=== PATIENT | female | born 1955 | race Caucasian/White ===

== ENCOUNTER 2017-11-16 14:46 | Emergency (ER) | payer BC ==
[2017-11-16] MEDS ORDERED: predniSONE 20 MG TAB ONE (15:28)
[2017-11-16 15:29] LABS: #Basophils 0.1 thou/uL (0.0-0.2); #Eosinphils 0.4 thou/uL (0.0-0.7); #Lymphocytes 1.3 thou/uL (1.20-3.40); #Monocytes 0.5 thou/uL (0.11-0.59); #Neutrophils 4.5 thou/uL (1.40-6.50); %Eosinophils 6.3 % (0.0-10.0); %Lymphocytes 18.9 % (21.0-51.0); %Monocytes 7.2 % (0.0-10.0); %Neutrophils 66.6 % (42.0-75.0); Mean Corpuscular HGB CONC 31.7 g/dL (32.0-36.0); Mean Corpuscular Volume 94.9 fl (81.0-99.0); Mean Platelet Volume 7.2 fL (7.4-10.4); Platelet Count 264 thou/uL (130-400); RBC Distribution Width 12.5 % (11.5-14.5); Red Blood Cell (RBC) Count 4.98 mill/uL (4.20-5.40); White Blood Cell (WBC) Count 6.7 thou/uL (4.8-10.8)
[2017-11-16] MEDS ORDERED: Dexamethasone 10 MG/ML VIAL ONE (15:34)
--- NOTE | 2017-11-16 15:38 | RAD ---
PORTABLE CHEST 1 VIEW: Date: 11/16/17 Time: 1511 hours HISTORY: Dyspnea. FINDINGS: Heart size is normal. Aorta is tortuous. Lungs are expanded with patchy infiltrate in the right upper lobe. No pneumothoraces or pleural effusions are seen. IMPRESSION: Findings are suspicious for right-sided pneumonia. POS: [facility]
[2017-11-16] MEDS ORDERED: Albuterol Sulfate 2.5 mg/3 ml Neb ONE (15:42)
[2017-11-16] MEDS ORDERED: Albuterol Sulfate 2.5 mg/0.5 ml Neb ONE (15:42)
[2017-11-16 15:52] LABS: ALT (SGPT) 33 U/L (8-55); AST (SGOT) 29 U/L (5-34); Albumin 4.7 g/dL (3.5-5.0); Alkaline Phosphatase 92 U/L (40-150); Anion Gap 15 mmol/L (10-20); BUN (Urea Nitrogen) 14 mg/dL (9.8-20.1); Bilirubin, Total 0.3 mg/dL (0.2-1.2); CK (CPK) 56 U/L (29-168); Calc. Creatinine Clearance 0 mL/min (70-130); Calcium 9.3 mg/dL (7.8-10.44); Carbon Dioxide 24 mmol/L (22-29); Chloride 104 mmol/L (98-107); Estimated GFR-MDRD 70; Globulin 3.3 g/dL (2.4-3.5); Glucose 90 mg/dL (70-105); Potassium 3.8 mmol/L (3.5-5.1); Sodium 139 mmol/L (136-145)
[2017-11-16 15:57] LABS: CKMB 1.5 ng/mL (0-6.6); Troponin I 0.011 ng/mL (< 0.028)
--- NOTE | 2017-11-21 14:30 | EKG ---
Test Reason : Blood Pressure : / mmHG Vent. Rate : 078 BPM Atrial Rate : 078 BPM P-R Int : 156 ms QRS Dur : 072 ms QT Int : 368 ms P-R-T Axes : -03 016 -13 degrees QTc Int : 419 ms Normal sinus rhythm Septal infarct , age undetermined Abnormal ECG Confirmed by SERENA CALDERON, OLIVIA ([id number]), food expeditor BRAIN ISAAC ([id number]) on 11/21/2017 2:30:10 PM Referred By: Confirmed By:OLIVIA LYONS MD
== END 2017-11-16 17:58 | disposition home or self-care (01) ==
LOC: ERS 14:46
DX: J18.9 Pneumonia, unspecified organism (principal); J98.01 Acute bronchospasm; E03.9 Hypothyroidism, unspecified; K21.9 Gastro-esophageal reflux disease without esophagitis; I10 Essential (primary) hypertension; F41.9 Anxiety disorder, unspecified; F17.210 Nicotine dependence, cigarettes, uncomplicated; Z71.6 Tobacco abuse counseling
CPT/HCPCS: 36415; 71045; 80053; 82550; 82553; 84484; 85025; 93005; 94640; 94760; 96372; 99406; J1100; J7506; J7611

== ENCOUNTER 2017-11-25 15:18 | Outpatient (CLI) | payer BC ==
--- NOTE | 2017-11-25 16:58 | RAD ---
TWO VIEW CHEST: 11/25/17 HISTORY: Pneumonia. Comparison made to a one view chest of 11/16/17. The prior exam revealed hazy infiltrate in the right upper lobe abutting the fissure on the right. On today's exam, there has been improvement in this hazy infiltrate. There continues to be some density peripherally that abuts the pleural surface in the lateral right chest at the site of this infiltrat e. Recommend continued followup to ensure clearing. IMPRESSION: Improvement in the infiltrate. Some persistent density peripheral right lung abutting the pleural bijan face. This could potentially represent loculated fluid or residual peripheral infiltrate. Followup re commended. POS: [facility]
== END 2017-11-25 15:19 | disposition home or self-care (01) ==
LOC: SCSRAD 15:18
PROVIDERS: ATTEND Nurse Practitioner Family
DX: J18.9 Pneumonia, unspecified organism (principal)
CPT/HCPCS: 71046

== ENCOUNTER 2017-12-01 16:13 | Outpatient (CLI) | payer BC | END 2017-12-01 16:14 | disposition home or self-care (01) | LOC: BICRAD 16:13 | PROVIDERS: ATTEND Nurse Practitioner Family | DX: J18.9 Pneumonia, unspecified organism (principal) | CPT/HCPCS: 71046 ==

== ENCOUNTER 2017-12-28 14:56 | Outpatient (CLI) | payer BC ==
--- NOTE | 2017-12-28 16:40 | MRI ---
MRI RIGHT KNEE WITHOUT CONTRAST: INDICATIONS: Right knee pain and swelling for one to two weeks. COMPARISON: None. FINDINGS: There is a 2 mm articular cartilage fissure involving the medial patellar ridge. There is some mild to moderate chondrosis involving the lateral patellar facet. There is moderate sized semimembranosus -medial gastrocnemius popliteal cyst. There is diffuse mild chondrosis involving the medial femoral tibial joint compartment. There is some mild edema involving the medial tibial plateau. There is a horizontally oriented oblique flap tear involving the body of the medial meniscus with a d isplaced meniscal flap seen within the inferior medial gutter, measuring 0.5 x 1.2 cm. The lateral m eniscus is intact. The ACL, PCL, MCL, and LCLC are intact. The extensor mechanism is intact. IMPRESSION: 1. Mild diffuse chondrosis involving the right knee but most prominently affecting the lateral mcclure lofemoral and the medial femoral tibial joint compartment. 2. Horizontally oriented oblique tear involving the body of the medial meniscus with displaced menis sheila flap seen within the inferior aspect of the medial gutter. POS: [facility]
== END 2017-12-28 14:57 | disposition home or self-care (01) ==
LOC: MRI 14:56
PROVIDERS: ATTEND Orthopaedic Surgery
DX: M25.561 Pain in right knee (principal); S83.241A Other tear of medial meniscus, current injury, right knee, initial encounter

== ENCOUNTER 2017-12-30 07:46 | Day surgery (SDC) | payer BC ==
[2017-12-29 13:23] VITALS: BMI 30.6
[2017-12-30 08:59] LABS: #Eosinphils 0.3 thou/uL (0.0-0.7); #Lymphocytes 1.6 thou/uL (1.20-3.40); #Monocytes 0.4 thou/uL (0.11-0.59); %Basophils 0.7 % (0.0-1.0); %Eosinophils 6.1 % (0.0-10.0); %Lymphocytes 29.4 % (21.0-51.0); %Monocytes 8.1 % (0.0-10.0); %Neutrophils 55.7 % (42.0-75.0); Mean Corpuscular HGB CONC 32.3 g/dL (32.0-36.0); Mean Corpuscular Hemoglobin 30.7 pg (27.0-31.0); Mean Corpuscular Volume 95.1 fl (81.0-99.0); Mean Platelet Volume 7.3 fL (7.4-10.4); Platelet Count 243 thou/uL (130-400); RBC Distribution Width 13.4 % (11.5-14.5); Red Blood Cell (RBC) Count 4.24 mill/uL (4.20-5.40); White Blood Cell (WBC) Count 5.4 thou/uL (4.8-10.8)
[2017-12-30 09:10] LABS: Anion Gap 10 mmol/L (10-20); BUN (Urea Nitrogen) 20 mg/dL (9.8-20.1); Calc. Creatinine Clearance 80 mL/min (70-130); Calcium 9.1 mg/dL (7.8-10.44); Carbon Dioxide 28 mmol/L (22-29); Chloride 107 mmol/L (98-107); Estimated GFR-MDRD 61; Glucose 101 mg/dL (70-105); Potassium 4.3 mmol/L (3.5-5.1); Sodium 141 mmol/L (136-145)
[2017-12-30] MEDS ORDERED: PROPOFOL 20 ML ONE (09:19)
[2017-12-30] MEDS ORDERED: CEFAZOLIN/Water 2 GM/20 ML SYRINGE ONE (09:47)
[2017-12-30] MEDS ORDERED: Fentanyl 100 MCG/2 ML VIAL ONE ×2 (11:15→12:17)
--- NOTE | 2017-12-30 11:45 | OP ---
DATE OF PROCEDURE: 12/30/2017 PREOPERATIVE DIAGNOSIS: Right knee complex degenerative posterior horn and body medial meniscus tear . POSTOPERATIVE DIAGNOSES: Right knee complex degenerative posterior horn and body medial meniscus tea r. PROCEDURE PERFORMED: Knee arthroscopy, partial medial meniscectomy. SURGEON: Soto Reynolds M.D. DRUG ABUSE COUNSELOR: None. BLOOD LOSS: Minimal. COMPLICATIONS: None. ANESTHESIA: She did have general anesthetic as well as a local knee block. DISPOSITION: She did go to the recovery room in stable condition. INDICATIONS: This 62-year-old active female has been having problems with pain, catching, and swelli ng of the knee. She was found to have a large flap tear of her posterior horn of the medial meniscus and at this time opted to have surgery. DESCRIPTION OF PROCEDURE: After all appropriate consent forms were explained and signed, she was ar en to the operating room and at this time was given general anesthetic. Once anesthesia was appropri ate, the tourniquet was placed on the right thigh and leg was placed in an arthroscopic leg morrison. She was then prepped and draped in standard surgical fashion. The limb was then exsanguinated and to urniquet was taken up to 250 mmHg. An inferolateral portal was established and the scope was placed into the knee joint. Needle localization technique was then used to make a medial working portal. D iagnostic arthroscopy commenced in the notch. ACL and PCL probed and found to be intact. The medial compartment was evaluated. There were some grade 2 changes on the medial femoral condyle, some fiss uring on the tibial plateau, large complex tear posterior horn medial meniscus with 2 large flap comp onents. There was a flap that was still attached to the root, flipped posteriorly behind the knee an d another flap attached still to the body which was flipped underneath the meniscus. Using meniscal biter and shaver, we were able to trim this down and remove the flap tear leading all remaining viabl e meniscal tissue. At this time, we turned our attention to the lateral compartment which was found to be pristine. The patellofemoral joint showed the trochlea to be in excellent condition. The supe rior facet of patella did have some crabmeat appearance, it was gently debrided and no other loose deena dies were noted in the medial lateral gutter. At this time, scope was removed, knee was drained. Po rtals were closed with simple nylon stitch. Bulky sterile dressing was applied and the tourniquet le t down. Toes pinked up nicely. The patient was awakened and taken to the recovery room in stable co ndition. All counts were correct at the end of the case and she did receive preoperative IV antibiot ics.
[2017-12-30] MEDS ORDERED: HYDROcodone/Acetaminophen 5/325 mg Tablet ONE ×2 (13:15)
[2017-12-30] MEDS ORDERED: Lidocaine 2% w/Epinephrine 1:200K 20 ML VIAL ONE (14:46)
[2017-12-30] MEDS ORDERED: Bupivacaine HCl 0.5%/Epinephrine 1:200,000/PF 30 ml Vial ONE (14:46)
[2017-12-30] MEDS ORDERED: PROPOFOL 200 MG/20 ML VIAL ONE (16:01)
[2017-12-30] MEDS ORDERED: Ketorolac Tromethamine 30 MG/ML VIAL ONE (16:01)
[2017-12-30] MEDS ORDERED: Dexamethasone 20 MG/5 ML VIAL ONE (16:01)
--- NOTE | 2017-12-31 06:23 | EKG ---
Test Reason : PREOP Blood Pressure : / mmHG Vent. Rate : 047 BPM Atrial Rate : 047 BPM P-R Int : 172 ms QRS Dur : 088 ms QT Int : 472 ms P-R-T Axes : 027 020 047 degrees QTc Int : 417 ms Marked sinus bradycardia Abnormal ECG When compared with ECG of 16-NOV-2017 15:29, Vent. rate has decreased BY 31 BPM Non-specific change in ST segment in Inferior leads T wave inversion no longer evident in Inferior leads Confirmed by ALTAF PEGUERO ([id number]) on 12/31/2017 6:10:39 AM Referred By: TIM Confirmed By:ALTAF PEGUERO
== END 2017-12-30 14:25 | disposition home or self-care (01) ==
LOC: SDC 07:46
PROVIDERS: ATTEND Orthopaedic Surgery
PROC: 0SBC4ZZ Excision of Right Knee Joint, Percutaneous Endoscopic Approach (ICD-10-PCS; principal; 2017-12-30)
DX: S83.231A Complex tear of medial meniscus, current injury, right knee, initial encounter (principal); F32.9 Major depressive disorder, single episode, unspecified; F41.9 Anxiety disorder, unspecified; I10 Essential (primary) hypertension; E11.9 Type 2 diabetes mellitus without complications; K21.9 Gastro-esophageal reflux disease without esophagitis; E03.9 Hypothyroidism, unspecified; E78.5 Hyperlipidemia, unspecified; F17.210 Nicotine dependence, cigarettes, uncomplicated; Z79.899 Other long term (current) drug therapy; Z88.0 Allergy status to penicillin; Z88.8 Allergy status to other drugs, medicaments and biological substances
CPT/HCPCS: 36415; 80048; 85025; 93005; 93010; 96374; G8978-GP-CJ; G8979-GP-CJ; G8980-GP-CJ; J0670; J1100; J1885; J2704; J3010

== ENCOUNTER 2020-01-18 13:59 | Emergency (ER) | payer BC ==
--- NOTE | 2020-01-18 15:36 | CT ---
CT BRAIN WITHOUT CONTRAST: 01/18/20 HISTORY: Facial pain, head trauma, headache. FINDINGS: No evidence of acute infarct, hemorrhage, midline shift or abnormal extra-axial fluid collections are seen. There are changes of chronic small vessel ischemic disease in the periventricular white matte r. The bony calvarium is intact. There is mild mucosal disease in the paranasal sinuses. IMPRESSION: No CT evidence of acute intracranial process. POS: [facility]
--- NOTE | 2020-01-18 15:42 | CT ---
CT maxillofacial noncontrast: 01/18/2020 HISTORY: 64-year-old female with persistent posttraumatic facial pain after injury approximately 5 days ago. FINDINGS: No fracture is identified. No air-fluid levels in the paranasal sinuses. Mucosal thickening throughou t bilateral ethmoid air cells, and mild mucosal thickening throughout bilateral maxillary sinuses. Minimal mucosal thickening of sphenoid sinus. The bilateral tympanomastoid cavities and the orbits, a re clear. No moderate sized or large hematoma in the deep soft tissues. Medialization of the left vocal cord. IMPRESSION: No fracture.
== END 2020-01-18 16:53 | disposition home or self-care (01) ==
LOC: ERS 13:59
DX: S00.33XA Contusion of nose, initial encounter (principal); E03.9 Hypothyroidism, unspecified; K21.9 Gastro-esophageal reflux disease without esophagitis; I10 Essential (primary) hypertension; F17.210 Nicotine dependence, cigarettes, uncomplicated; F41.9 Anxiety disorder, unspecified; Z79.899 Other long term (current) drug therapy; W22.8XXA Striking against or struck by other objects, initial encounter
CPT/HCPCS: 70450; 70486

== ENCOUNTER 2020-01-20 05:57 | Emergency (ER) | payer BC ==
[2020-01-20] MEDS ORDERED: Metoclopramide HCl 10 MG/2 ML VIAL ONE (06:24)
[2020-01-20] MEDS ORDERED: Acetaminophen 500 MG TAB ONE (06:24)
[2020-01-20] MEDS ORDERED: diphenhydrAMINE 50 MG/ML VIAL ONE (06:24)
--- NOTE | 2020-01-20 07:49 | CT ---
CT BRAIN WITHOUT CONTRAST: COMPARISON: 01/18/2020. HISTORY: Headache that continually getting worse. Head pressure. TECHNIQUE: Multiple contiguous axial images were obtained in a CT of the brain without contrast. FINDINGS: The brain is normal in morphology and attenuation without focal lesions or palpable areas of infarcti on. There is no evidence of hydrocephalus, intracranial hemorrhage, or extraaxial fluid collection. The calvarium and overlying soft tissues are unremarkable. The visualized paranasal sinuses and mast oid air cells are well aerated. IMPRESSION: No evidence of acute intracranial abnormality. POS: [facility]
== END 2020-01-20 07:28 | disposition home or self-care (01) ==
LOC: ERS 05:57
DX: S00.83XA Contusion of other part of head, initial encounter (principal); E03.9 Hypothyroidism, unspecified; K21.9 Gastro-esophageal reflux disease without esophagitis; I10 Essential (primary) hypertension; F41.9 Anxiety disorder, unspecified; F17.210 Nicotine dependence, cigarettes, uncomplicated; Z79.899 Other long term (current) drug therapy; W22.8XXA Striking against or struck by other objects, initial encounter
CPT/HCPCS: 70450; 96365; 96375; J1200; J2765

== ENCOUNTER 2020-01-28 12:40 | Emergency (ER) | payer BC, OTHER ==
[~2020-01-28 12:40] MED LIST: Iopamidol-370 76% 500 ML 1 ML ONE
[2020-01-28 13:17] LABS: #Basophils 0.1 thou/uL (0.0-0.2); #Eosinphils 0.3 thou/uL (0.0-0.7); #Lymphocytes 2.3 thou/uL (1.20-3.40); #Monocytes 0.5 thou/uL (0.11-0.59); #Neutrophils 3.9 thou/uL (1.40-6.50); %Basophils 2.1 % (0.0-1.0); %Eosinophils 4.4 % (0.0-10.0); %Monocytes 6.8 % (0.0-10.0); %Neutrophils 54.7 % (42.0-75.0); Hemoglobin 13.9 g/dL (12.0-16.0); Mean Corpuscular HGB CONC 31.4 g/dL (32.0-36.0); Mean Corpuscular Hemoglobin 31.4 pg (27.0-31.0); Mean Platelet Volume 7.6 fL (7.4-10.4); Platelet Count 284 thou/uL (130-400); Red Blood Cell (RBC) Count 4.43 mill/uL (4.20-5.40); White Blood Cell (WBC) Count 7.2 thou/uL (4.8-10.8)
--- NOTE | 2020-01-28 13:25 | RAD ---
EXAM: Portable chest PROVIDED CLINICAL HISTORY: Shortness of breath COMPARISON: 11/16/2017 FINDINGS: Cardiac and mediastinal silhouette is within normal limits. No focal consolidation, pleural fluid or pneumothorax evident. IMPRESSION: No evidence for an acute cardiopulmonary process.
[2020-01-28] MEDS ORDERED: Albuterol 200 PUFF (6.7GM INHALER) ONE (13:29)
[2020-01-28 13:41] LABS: ALT (SGPT) 18 U/L (8-55); AST (SGOT) 16 U/L (5-34); Albumin 4.2 g/dL (3.4-4.8); Alkaline Phosphatase 79 U/L (40-110); Anion Gap 9 mmol/L (10-20); BUN (Urea Nitrogen) 16 mg/dL (9.8-20.1); Bilirubin, Total 0.3 mg/dL (0.2-1.2); Calc. Creatinine Clearance 0 mL/min (70-130); Calcium 8.9 mg/dL (7.8-10.44); Carbon Dioxide 30 mmol/L (23-31); Chloride 105 mmol/L (98-107); Estimated GFR-MDRD 63; Globulin 2.7 g/dL (2.4-3.5); Glucose 85 mg/dL (80-115); Lipase 12 U/L (8-78); Potassium 3.8 mmol/L (3.5-5.1); Protein, Total 6.9 g/dL (6.0-8.3); Sodium 140 mmol/L (136-145)
--- NOTE | 2020-01-28 14:52 | CT ---
EXAM: CT pulmonary angiogram with IV contrast and 3-D MIP reconstructions PROVIDED CLINICAL HISTORY: Dyspnea COMPARISON: None FINDINGS: There is no evidence for central or segmental pulmonary embolus. The lungs are free of significant opacity. Mild centrilobular emphysematous changes are seen. No pleural fluid or pneumothorax apparent. No evidence for thoracic lymph node enlargement. The airway appears patent and of normal caliber. The visualized portions of the upper abdomen demonstrate no acute findings. Mild hiatal hernia. The osseous structures demonstrate no concerning lytic or blastic lesions. IMPRESSION: No evidence for central or segmental pulmonary embolus.
[2020-01-28 15:53] LABS: Troponin I Less than 0.010 ng/mL (< 0.028)
[2020-01-29 19:25] LABS: SARS-CoV-2 MS2 Positive; SARS-CoV-2 N Gene Negative; SARS-CoV-2 S Gene Negative; SARS-CoV-2 orf1ab Negative
== END 2020-01-28 17:20 | disposition home or self-care (01) ==
LOC: ERS 12:40
DX: R07.89 Other chest pain (principal); R06.2 Wheezing; R06.02 Shortness of breath; Z20.828 Contact with and (suspected) exposure to other viral communicable diseases; K21.9 Gastro-esophageal reflux disease without esophagitis; I10 Essential (primary) hypertension; F41.9 Anxiety disorder, unspecified; F17.210 Nicotine dependence, cigarettes, uncomplicated; E03.9 Hypothyroidism, unspecified; Z79.899 Other long term (current) drug therapy
CPT/HCPCS: 36415; 71045; 71275; 80053; 83690; 84484; 85025; 87635; 93005; 94760; Q9967; U0003

== ENCOUNTER 2021-01-02 08:48 | Observation (INO) | payer BC ==
[2021-01-02 09:37] LABS: #Basophils 0.1 thou/uL (0.0-0.2); #Eosinphils 0.4 thou/uL (0.0-0.7); #Lymphocytes 1.9 thou/uL (1.20-3.40); #Monocytes 0.6 thou/uL (0.11-0.59); #Neutrophils 5.3 thou/uL (1.40-6.50); %Basophils 0.8 % (0.0-1.0); %Eosinophils 4.4 % (0.0-10.0); %Lymphocytes 22.7 % (21.0-51.0); %Monocytes 7.7 % (0.0-10.0); %Neutrophils 64.4 % (42.0-75.0); Hemoglobin 14.2 g/dL (12.0-16.0); Mean Corpuscular HGB CONC 32.6 g/dL (32.0-36.0); Mean Corpuscular Hemoglobin 30.9 pg (27.0-31.0); Mean Corpuscular Volume 94.8 fL (78.0-98.0); Mean Platelet Volume 7.7 fL (7.4-10.4); Platelet Count 244 thou/uL (130-400); RBC Distribution Width 12.8 % (11.5-14.5); Red Blood Cell (RBC) Count 4.59 mill/uL (4.20-5.40); White Blood Cell (WBC) Count 8.2 thou/uL (4.8-10.8)
[2021-01-02 10:03] LABS: ALT (SGPT) 18 U/L (8-55); AST (SGOT) 17 U/L (5-34); Albumin 4.2 g/dL (3.4-4.8); Alkaline Phosphatase 83 U/L (40-110); Anion Gap 15 mmol/L (10-20); BUN (Urea Nitrogen) 25 mg/dL (9.8-20.1); Bilirubin, Total 0.2 mg/dL (0.2-1.2); Calc. Creatinine Clearance 0 mL/min (70-130); Calcium 8.7 mg/dL (7.8-10.44); Carbon Dioxide 25 mmol/L (23-31); Chloride 106 mmol/L (98-107); Globulin 2.5 g/dL (2.4-3.5); Glucose 118 mg/dL (80-115); Potassium 4.1 mmol/L (3.5-5.1); Protein, Total 6.7 g/dL (5.8-8.1); Sodium 142 mmol/L (136-145)
[2021-01-02] MEDS ORDERED: Nitroglycerin 2% Ointment 1 INCH/1 GM Packet ONE (10:07)
[2021-01-02] MEDS ORDERED: Aspirin Chewable 81 MG TAB ONE (10:07)
[2021-01-02] MEDS ORDERED: Nitroglycerin 0.4 MG TAB (25 Tab Bottle) SL PRN (11:21)
[2021-01-02 12:53] LABS: Troponin I Less than 0.010 ng/mL (< 0.028)
[2021-01-02 16:03] LABS: Troponin I Less than 0.010 ng/mL (< 0.028)
[2021-01-02] MEDS ORDERED: Acetaminophen 325 MG TAB ONE (16:56)
[2021-01-02] MEDS: Acetaminophen 325 MG TAB PO PRN (16:57)
[2021-01-02 18:02] LABS: SARS-CoV-2 PCR by NAA Not Detected (NotDetected)
[2021-01-02 22:08] VITALS: BMI 33.9
[2021-01-02] MEDS ORDERED: ALPRAZolam 0.5 MG TAB PO PRN (22:35)
[2021-01-03] MEDS: Acetaminophen 325 MG TAB PO PRN ×2 (05:53→11:01)
[2021-01-03] MEDS ORDERED: Levothyroxine Sodium 125 MCG TAB PO SCH (06:00)
[2021-01-03 07:21] LABS: #Basophils 0.1 thou/uL (0.0-0.2); #Eosinphils 0.4 thou/uL (0.0-0.7); #Lymphocytes 2.4 thou/uL (1.20-3.40); #Monocytes 0.7 thou/uL (0.11-0.59); #Neutrophils 3.8 thou/uL (1.40-6.50); %Basophils 1.3 % (0.0-1.0); %Eosinophils 5.4 % (0.0-10.0); %Lymphocytes 32.2 % (21.0-51.0); %Monocytes 9.1 % (0.0-10.0); Hemoglobin 14.2 g/dL (12.0-16.0); Mean Corpuscular HGB CONC 31.7 g/dL (32.0-36.0); Mean Corpuscular Hemoglobin 30.1 pg (27.0-31.0); Mean Platelet Volume 7.9 fL (7.4-10.4); Platelet Count 260 thou/uL (130-400); RBC Distribution Width 12.9 % (11.5-14.5); Red Blood Cell (RBC) Count 4.72 mill/uL (4.20-5.40); White Blood Cell (WBC) Count 7.4 thou/uL (4.8-10.8)
[2021-01-03] MEDS: Aspirin Chewable 81 MG TAB PO SCH ×2 (08:18→11:02)
[2021-01-03 08:28] LABS: Anion Gap 15 mmol/L (10-20); BUN (Urea Nitrogen) 23 mg/dL (9.8-20.1); Calc. Creatinine Clearance 79 mL/min (70-130); Calcium 9.1 mg/dL (7.8-10.44); Carbon Dioxide 25 mmol/L (23-31); Cardiac Risk 3.7 (Less than 4.5); Chloride 104 mmol/L (98-107); Cholesterol 235 mg/dl (< 200 Desired); Glucose 111 mg/dL (80-115); HDL Cholesterol 64 mg/dL (>60 Neg Risk); LDL Cholesterol, Calculated 148 mg/dL; Potassium 3.8 mmol/L (3.5-5.1); Sodium 140 mmol/L (136-145); Triglycerides 117 mg/dL (Less than 150)
[2021-01-03] MEDS ORDERED: Regadenoson 0.4 MG/5 ML SYRINGE ONE (13:53)
[2021-01-03 16:49] VITALS: BP 135/79; TEMP 98.1
[2021-01-03] MEDS ORDERED: Losartan 25 MG TAB PO SCH (17:45)
[2021-01-03] MEDS ORDERED: Amitriptyline HCl 25 MG TAB PO SCH (21:00)
[2021-01-04] MEDS ORDERED: Losartan 25 MG TAB PO SCH (09:00)
== END 2021-01-03 18:46 | disposition home or self-care (01) ==
LOC: ERS 08:48 → ERHOLD 10:49 → 2SW 20:20
PROVIDERS: ADMIT Internal Medicine; ATTEND Family Medicine
DX: R07.89 Other chest pain (principal); E89.0 Postprocedural hypothyroidism; I10 Essential (primary) hypertension; E78.5 Hyperlipidemia, unspecified; K21.9 Gastro-esophageal reflux disease without esophagitis; J45.909 Unspecified asthma, uncomplicated; R00.1 Bradycardia, unspecified; Z87.891 Personal history of nicotine dependence; Z79.899 Other long term (current) drug therapy; Z88.1 Allergy status to other antibiotic agents; Z88.5 Allergy status to narcotic agent; Z20.822 Contact with and (suspected) exposure to COVID-19
CPT/HCPCS: 36415; 71045; 78452; 80048; 80053; 80061; 83735; 83880; 84443; 84484; 85025; 87635; 93005; 93017; 93306; A9500; G0378; J2785; U0003; U0005

== ENCOUNTER 2021-08-30 16:26 | Emergency (ER) | payer BC ==
[2021-08-30] MEDS ORDERED: traMADol HCl 50 MG TAB ONE (16:51)
== END 2021-08-30 18:20 | disposition home or self-care (01) ==
LOC: ERS 16:26
DX: S90.111A Contusion of right great toe without damage to nail, initial encounter (principal); S90.121A Contusion of right lesser toe(s) without damage to nail, initial encounter; S80.211A Abrasion, right knee, initial encounter; K21.9 Gastro-esophageal reflux disease without esophagitis; I10 Essential (primary) hypertension; E03.9 Hypothyroidism, unspecified; Z87.891 Personal history of nicotine dependence; W10.8XXA Fall (on) (from) other stairs and steps, initial encounter

== ENCOUNTER 2022-01-17 10:54 | Outpatient (CLI) | payer BC | END 2022-01-17 10:55 | disposition home or self-care (01) | LOC: BICMAMMO 10:54 | PROVIDERS: ATTEND Family Medicine | DX: Z12.31 Encounter for screening mammogram for malignant neoplasm of breast (principal); Z80.3 Family history of malignant neoplasm of breast | CPT/HCPCS: 77063; 77067 ==